=== PATIENT | female | born 1960 | race Two or more races ===

== ENCOUNTER 2023-06-11 11:07 | Emergency (ER) | payer OTHER ==
[~2023-06-11] VITALS: Ht 162.6 cm; Wt 61.7 kg
[~2023-06-11 11:07] MED LIST: MACROBID 100 M100 MG PO; ULTRACET PO
[2023-06-11] MEDS ORDERED: DEXAMETHASONE SODIUM PHOSPHATE 4 MG/ML VIAL IV STA (13:24)
[2023-06-11] MEDS ORDERED: ORPHENADRINE CITRATE 30 MG/ML AMPUL IM SCH (13:30)
[2023-06-11 16:50] LABS: HEMOGLOBIN 13.6 g/dL (12.0-15.00); MEAN CELL VOLUME 85.6 fL (80.00-100.00); MEAN CORPUSCULAR HEMOGLOBIN 29.1 pg (27.00-32.0); PLATELET COUNT 234 K/uL (150-450); RED BLOOD COUNT 4.67 M/uL (4.00-6.00); RED CELL DISTRIBUTION WIDTH 13.4 % (11.5-14.5)
[2023-06-11] MEDS ORDERED: KETOROLAC TROMETHAMINE 15 MG VIAL IU ONE (17:00)
[2023-06-11 17:12] LABS: ALBUMIN 4.1 gm/dL (3.4-5.0); BILIRUBIN TOTAL 0.69 mg/dL (0.3-1.2); CREATININE SERUM 0.72 mg/dL (0.55-1.02); GFR 81.81; GLOBULINA 3.8 G/DL (2.4-3.5); POTASSIUM 4.17 mEq/L (3.5-5.1); TOTAL PROTEIN 7.9 gm/dL (6.4-8.2)
[2023-06-11 17:24] LABS: URINE APPEARANCE Clear; URINE BACTERIA 27.7 uL (0.0-1933); URINE BILIRRUBIN Negative (NEGATIVE); URINE BLOOD Negative; URINE COLOR Yellow; URINE EPITHELIAL CELLS 5.4 uL (0.0-38.8); URINE GLUCOSE Negative (NEGATIVE); URINE LEUKOCYTE Trace; URINE NITRATE Negative; URINE PROTEIN Negative (NEGATIVE); URINE RBC 3.5 uL (0.0-20.8); URINE UROBILINOGEN 0.2 E.U./dl; URINE WBC 5.7 uL (0.0-23.2)
== END 2023-06-11 17:42 | disposition home or self-care (01) ==
LOC: ER 11:07
PROVIDERS: General Practice
DX: G44.209 Tension-type headache, unspecified, not intractable (principal); M62.838 Other muscle spasm